=== PATIENT | male | born 1945 | race Caucasian/White ===

== ENCOUNTER 2023-08-11 14:05 | Inpatient (IN) | payer MEDICARE, BC ==
[~2023-08-11] VITALS: Ht 172.7 cm; Wt 92.1 kg
[2023-08-11 18:20] VITALS: BP 151/84; TEMP 98.5; O2SAT 97
[2023-08-11] MEDS ORDERED: HYDR-4077 PO (18:58)
[2023-08-11] MEDS ORDERED: AZIT250T13 PO (18:58)
[2023-08-11] MEDS ORDERED: AZIL40TA PO (18:58)
[2023-08-11] MEDS ORDERED: HYDR-894 PO (18:58)
[2023-08-11] MEDS ORDERED: PYRI60TA2 PO (18:58)
[2023-08-11] MEDS ORDERED: CARV12.52 PO (18:58)
[2023-08-11] MEDS ORDERED: ERGO400C PO (18:58)
[2023-08-11] MEDS ORDERED: SERT50TA PO (18:58)
[2023-08-11 19:30] VITALS: BP 154/83; TEMP 98.2; O2SAT 96
[2023-08-11] MEDS ORDERED: ASPI81TA31 PO (19:50)
[2023-08-11] MEDS ORDERED: CLOP75TA15 PO (19:58)
[2023-08-11] MEDS ORDERED: AZITHROMYCIN 250 MG TABLET PO SCH (21:00)
[2023-08-11] MEDS ORDERED: CARVEDILOL 12.5 MG TABLET PO SCH (21:00)
[2023-08-11] MEDS ORDERED: CLOPIDOGREL 75 MG TABLET PO SCH (21:00)
[2023-08-11] MEDS: CARVEDILOL 12.5 MG TABLET PO SCH (22:19)
[2023-08-11] MEDS: CLOPIDOGREL 75 MG TABLET PO SCH (22:19)
[2023-08-11 23:07] LABS: *BILIRUBIN,URIN NEGATIVE (NEGATIVE); *BLOOD, URINE NEGATIVE (NEGATIVE); *CLARITY,URINE CLEAR (CLEAR); *COLOR,URINE YELLOW (YELLOW); *KETONES,URINE NEGATIVE (NEGATIVE); *PROTEIN,URINE NEGATIVE (NEGATIVE); *UROBILINOGEN,URINE 0.2 E.U./dl (NORMAL); LEUKOCYTE ESTERASE ,URINE NEGATIVE (NEGATIVE); NITRITE, URINE NEGATIVE (NEGATIVE); PH,URINE 5.5 (5.0-8.0); UGLUCOSE NEGATIVE (NEGATIVE)
[2023-08-12] VITALS (13 sets, daily range): BP systolic 84–176; BP diastolic 53–98; TEMP 92.7–98.8; O2SAT 93–98
[2023-08-12] MEDS: hydrALAZINE HCL 50 MG TABLET PO PRN (03:14)
[2023-08-12] MEDS: hydrALAZINE HCL 50 MG TABLET PO ONE (06:17)
[2023-08-12] MEDS: ASPIRIN 81 MG TAB.CHEW PO SCH (08:17)
[2023-08-12] MEDS: SERTRALINE HCL 50 MG TABLET PO SCH (08:17)
[2023-08-12 08:35] LABS: BASOPHILS % (AUTO) 0.1 % (0.0-2.0); EOSINOPHILS # (AUTO) 0.1 K/uL (0.0-0.7); EOSINOPHILS % (AUTO) 1.2 % (0.0-7.0); HEMATOCRIT 39.6 % (36.7-47.1); HEMOGLOBIN 13.9 g/dL (12.5-16.3); LYMPHOCYTES # (AUTO) 1.2 K/uL (0.8-4.8); LYMPHOCYTES % (AUTO) 20.8 % (20.5-51.5); MEAN CORPUSCULAR HEMOGLOBIN 31.9 uug (23.8-33.4); MEAN CORPUSCULAR HGB CONC 35 g/dL (32.5-36.3); MONOCYTES # (AUTO) 0.6 K/uL (0.1-1.30); MONOCYTES % (AUTO) 11.1 % (0.0-11.0); NEUTROPHILS # (AUTO) 3.9 K/uL (1.8-8.9); NEUTROPHILS % (AUTO) 66.8 % (38.5-71.5); PLATELET COUNT (AUTO) 135 K/uL (152-348); RED BLOOD CELL COUNT(AUTO) 4.35 MIL/uL (4.06-5.63); RED CELL DISTRIBUTION WIDTH 12.6 % (12.1-16.2); WHITE BLOOD COUNT (AUTO) 5.8 K/uL (3.6-10.2)
[2023-08-12 08:44] LABS: THYROID STIMULATING HORMONE 2.146 mIU/mL (0.358-3.740)
[2023-08-12 08:53] LABS: IRON, SERUM 42 ug/dL (50-175)
[2023-08-12] MEDS ORDERED: Medication Not On Formulary EA (Azilsartan Medoxomil (Edarbi) 1 TAB) PO SCH (09:00)
[2023-08-12] MEDS: hydrALAZINE HCL 25 MG TABLET PO SCH (09:00)
[2023-08-12] MEDS ORDERED: I PO SCH (09:00)
[2023-08-12] MEDS ORDERED: hydrALAZINE HCL 50 MG TABLET PO SCH (09:00)
[2023-08-12] MEDS ORDERED: EDARBI 80 MG PO SCH ×2 (09:00→21:00)
[2023-08-12] MEDS ORDERED: PYRIDOSTIGMINE BROMIDE 60 MG TABLET PO SCH (09:00)
[2023-08-12 09:15] LABS: ALANINE AMINOTRANSFERASE 19 U/L (16-63); ALBUMIN 3.1 g/dL (3.4-5.0); ALKALINE PHOSPHATASE 54 U/L (50-136); ASPARTATE AMINOTRANSFERASE 6 U/L (15-37); BILIRUBIN,TOTAL 0.6 mg/dL (0.2-1.0); CARBON DIOXIDE 28 mmol/L (21-32); CHLORIDE 110 mmol/L (98-107); CHOLESTEROL 158 mg/dL (<200); CREATININE 1.1 mg/dL (0.6-1.3); GLUCOSE 98 mg/dL (74-106); HDL CHOLESTEROL 46 mg/dL (40-60); MAGNESIUM 2.2 mg/dL (1.8-2.4); NT-PRO BNP 299 pg/mL (0-125); PHOSPHOROUS 4.2 mg/dL (2.5-4.9); SODIUM SERUM 146 mmol/L (136-145); TOTAL PROTEIN, SERUM 6.4 g/dL (6.4-8.2); TRIGLYCERIDES 86 MG/DL (30-150); UREA NITROGEN, BLOOD 19 mg/dL (7-18)
[2023-08-12 09:52] LABS: CALCIUM 8.7 mg/dL (8.5-10.1)
[2023-08-12] MEDS: CHOLECALCIFEROL 400 UNITS TABLET PO SCH (10:06)
[2023-08-12] MEDS: PYRIDOSTIGMINE BROMIDE 60 MG TABLET PO SCH (10:07)
[2023-08-12] MEDS: AZITHROMYCIN 250 MG TABLET PO SCH (12:42)
[2023-08-12] MEDS: ENOXAPARIN SODIUM 40 MG/0.4 ML DISP.SYRIN SQ SCH (18:18)
[2023-08-12] MEDS: CARVEDILOL 12.5 MG TABLET PO SCH (21:16)
[2023-08-12] MEDS: EDARBI 80 MG PO SCH (21:17)
[2023-08-13] VITALS (7 sets, daily range): BP systolic 101–161; BP diastolic 53–85; TEMP 98.2–99.2; O2SAT 95–98
[2023-08-13] MEDS: CHOLECALCIFEROL 1,000 UNIT TABLET PO SCH (09:57)
[2023-08-13] MEDS: AZITHROMYCIN 250 MG TABLET PO SCH (12:19)
[2023-08-14] VITALS (8 sets, daily range): BP systolic 112–184; BP diastolic 59–90; TEMP 98.4–98.9; O2SAT 92–99
[2023-08-14] MEDS: hydrALAZINE HCL 25 MG TABLET PO PRN (04:37)
[2023-08-14] MEDS: hydrALAZINE HCL 50 MG TABLET PO SCH (13:00)
[2023-08-15 05:30] VITALS: BP 189/90; TEMP 98.3; O2SAT 96
[2023-08-15 08:00] VITALS: BP 150/85; TEMP 99.2; O2SAT 99
[2023-08-15 11:04] LABS: BASOPHILS # (AUTO) 0.1 K/UL (0.0-0.2); BASOPHILS % (AUTO) 1.4 % (0.0-2.0); EOSINOPHILS # (AUTO) 0.2 K/uL (0.0-0.7); EOSINOPHILS % (AUTO) 3.2 % (0.0-7.0); HEMATOCRIT 38.5 % (36.7-47.1); HEMOGLOBIN 13.3 g/dL (12.5-16.3); LYMPHOCYTES % (AUTO) 18.6 % (20.5-51.5); MEAN CORPUSCULAR HEMOGLOBIN 31.6 uug (23.8-33.4); MEAN CORPUSCULAR HGB CONC 35 g/dL (32.5-36.3); MONOCYTES # (AUTO) 0.4 K/uL (0.1-1.30); MONOCYTES % (AUTO) 8.3 % (0.0-11.0); NEUTROPHILS # (AUTO) 3.6 K/uL (1.8-8.9); NEUTROPHILS % (AUTO) 68.5 % (38.5-71.5); PLATELET COUNT (AUTO) 145 K/uL (152-348); RED BLOOD CELL COUNT(AUTO) 4.23 MIL/uL (4.06-5.63); RED CELL DISTRIBUTION WIDTH 12.6 % (12.1-16.2); WHITE BLOOD COUNT (AUTO) 5.3 K/uL (3.6-10.2)
[2023-08-15 11:24] LABS: DIFFERENTIAL COMMENT 1
[2023-08-15 11:40] LABS: ALBUMIN 3.2 g/dL (3.4-5.0); BILIRUBIN,TOTAL 0.6 mg/dL (0.2-1.0); CALCIUM 8.6 mg/dL (8.5-10.1); CREATININE 1.1 mg/dL (0.6-1.3); POTASSIUM 3.9 mmol/L (3.5-5.1); TOTAL PROTEIN, SERUM 6.6 g/dL (6.4-8.2)
[2023-08-15 13:05] VITALS: BP 127/80; TEMP 98.2; O2SAT 95
[2023-08-15 21:15] VITALS: BP 147/65; TEMP 98.3; O2SAT 92
[2023-08-16] VITALS (8 sets, daily range): BP systolic 117–204; BP diastolic 69–126; TEMP 97.2–98.7; O2SAT 96–98
[2023-08-16] MEDS: PANTOPRAZOLE SODIUM 40 MG TABLET.DR PO SCH (06:09)
[2023-08-16] MEDS: ASPIRIN EC 81 MG TABLET.DR PO SCH (08:32)
[2023-08-17] VITALS (10 sets, daily range): BP systolic 122–181; BP diastolic 76–90; TEMP 97.6–98.6; O2SAT 96–98
[2023-08-17] MEDS ORDERED: IV NORMAL SALINE 1000 ML BAG IV ONE (12:00)
[2023-08-17 12:50] LABS: BASOPHILS # (AUTO) 0.3 K/UL (0.0-0.2); BASOPHILS % (AUTO) 4.7 % (0.0-2.0); EOSINOPHILS # (AUTO) 0.1 K/uL (0.0-0.7); EOSINOPHILS % (AUTO) 1.5 % (0.0-7.0); HEMATOCRIT 38.3 % (36.7-47.1); HEMOGLOBIN 13.2 g/dL (12.5-16.3); LYMPHOCYTES # (AUTO) 1.1 K/uL (0.8-4.8); LYMPHOCYTES % (AUTO) 18.9 % (20.5-51.5); MEAN CORPUSCULAR HEMOGLOBIN 31.6 uug (23.8-33.4); MEAN CORPUSCULAR HGB CONC 34 g/dL (32.5-36.3); MEAN CORPUSCULAR VOLUME 91.9 fL (73.0-96.2); MONOCYTES # (AUTO) 0.3 K/uL (0.1-1.30); MONOCYTES % (AUTO) 5.2 % (0.0-11.0); NEUTROPHILS # (AUTO) 4.1 K/uL (1.8-8.9); NEUTROPHILS % (AUTO) 69.7 % (38.5-71.5); PLATELET COUNT (AUTO) 171 K/uL (152-348); RED BLOOD CELL COUNT(AUTO) 4.16 MIL/uL (4.06-5.63); RED CELL DISTRIBUTION WIDTH 12.7 % (12.1-16.2); WHITE BLOOD COUNT (AUTO) 5.9 K/uL (3.6-10.2)
[2023-08-17 12:53] LABS: DIFFERENTIAL COMMENT 1
[2023-08-17 13:04] LABS: ALBUMIN 3.3 g/dL (3.4-5.0); BILIRUBIN,TOTAL 0.5 mg/dL (0.2-1.0); CALCIUM 8.4 mg/dL (8.5-10.1); CREATININE 1.1 mg/dL (0.6-1.3); TOTAL PROTEIN, SERUM 6.6 g/dL (6.4-8.2)
[2023-08-17] MEDS: IV NS 1000 ML 1,000 ML IV ONE (14:05)
[2023-08-17 17:01] LABS: *BILIRUBIN,URIN NEGATIVE (NEGATIVE); *BLOOD, URINE NEGATIVE (NEGATIVE); *CLARITY,URINE CLEAR (CLEAR); *COLOR,URINE YELLOW (YELLOW); *KETONES,URINE NEGATIVE (NEGATIVE); *PROTEIN,URINE NEGATIVE (NEGATIVE); *UROBILINOGEN,URINE 0.2 E.U./dl (NORMAL); LEUKOCYTE ESTERASE ,URINE NEGATIVE (NEGATIVE); NITRITE, URINE NEGATIVE (NEGATIVE); UGLUCOSE NEGATIVE (NEGATIVE)
[2023-08-18] VITALS (9 sets, daily range): BP systolic 110–178; BP diastolic 71–97; TEMP 97.9–98.6; O2SAT 94–97
[2023-08-18] MEDS: LOSARTAN POTASSIUM 50 MG TABLET PO SCH (10:12)
[2023-08-19] VITALS (8 sets, daily range): BP systolic 124–174; BP diastolic 80–90; TEMP 98.6–98.7; O2SAT 92–97
[2023-08-19] MEDS: CYANOCOBALAMIN 1000 MCG/ML VIAL IM SCH (08:43)
[2023-08-19] MEDS ORDERED: CLOTRIMAZOLE 1% CREAM 30 GM TUBE TOP SCH (17:00)
[2023-08-19] MEDS ORDERED: hydrALAZINE HCL 50 MG TABLET PO PRN (19:45)
[2023-08-19] MEDS: AMLODIPINE 5 MG TABLET PO SCH (21:56)
[2023-08-19] MEDS: hydrALAZINE HCL 50 MG TABLET PO SCH (22:00)
[2023-08-20] VITALS (19 sets, daily range): BP systolic 107–190; BP diastolic 67–117; TEMP 98–98.7; O2SAT 91–99
[2023-08-20] MEDS: hydrALAZINE HCL 25 MG TABLET PO PRN (02:18)
[2023-08-20] MEDS ORDERED: CHOLECALCIFEROL 400 UNITS TABLET PO SCH (09:00)
[2023-08-20] MEDS: CHOLECALCIFEROL 1,000 UNIT TABLET PO SCH (09:57)
[2023-08-21] VITALS (12 sets, daily range): BP systolic 83–171; BP diastolic 72–110; TEMP 97.9–98.9; O2SAT 93–97
[2023-08-21 06:56] LABS: BASOPHILS % (AUTO) 0.1 % (0.0-2.0); EOSINOPHILS # (AUTO) 0.1 K/uL (0.0-0.7); EOSINOPHILS % (AUTO) 1.3 % (0.0-7.0); HEMATOCRIT 37.6 % (36.7-47.1); LYMPHOCYTES # (AUTO) 1.2 K/uL (0.8-4.8); LYMPHOCYTES % (AUTO) 22.2 % (20.5-51.5); MEAN CORPUSCULAR HEMOGLOBIN 31.4 uug (23.8-33.4); MEAN CORPUSCULAR HGB CONC 35 g/dL (32.5-36.3); MONOCYTES # (AUTO) 0.4 K/uL (0.1-1.30); MONOCYTES % (AUTO) 7.7 % (0.0-11.0); NEUTROPHILS # (AUTO) 3.6 K/uL (1.8-8.9); NEUTROPHILS % (AUTO) 68.7 % (38.5-71.5); PLATELET COUNT (AUTO) 163 K/uL (152-348); RED BLOOD CELL COUNT(AUTO) 4.13 MIL/uL (4.06-5.63); RED CELL DISTRIBUTION WIDTH 12.4 % (12.1-16.2); WHITE BLOOD COUNT (AUTO) 5.3 K/uL (3.6-10.2)
[2023-08-21 07:05] LABS: ALBUMIN 3.1 g/dL (3.4-5.0); BILIRUBIN,TOTAL 0.5 mg/dL (0.2-1.0); CALCIUM 8.5 mg/dL (8.5-10.1); CREATININE 1.1 mg/dL (0.6-1.3); DIFFERENTIAL COMMENT 1; MAGNESIUM 2.1 mg/dL (1.8-2.4); PHOSPHOROUS 4.1 mg/dL (2.5-4.9); POTASSIUM 4.2 mmol/L (3.5-5.1); TOTAL PROTEIN, SERUM 6.5 g/dL (6.4-8.2)
[2023-08-22] VITALS (8 sets, daily range): BP systolic 119–159; BP diastolic 79–95; TEMP 98.2–98.8; O2SAT 93–99
[2023-08-23 00:33] VITALS: O2SAT 93
[2023-08-23 13:56] VITALS: BP 141/78; TEMP 98.2; O2SAT 93
[2023-08-23 17:05] VITALS: BP 146/87; TEMP 98.3; O2SAT 98
[2023-08-23 19:50] VITALS: BP 133/78; TEMP 99; O2SAT 96
[2023-08-23 20:53] VITALS: O2SAT 96
[2023-08-24] VITALS (7 sets, daily range): BP systolic 109–158; BP diastolic 73–89; TEMP 98.4–98.7; O2SAT 95–98
== END 2023-08-24 15:30 | disposition home health service (06) | DRG 57 ==
PROVIDERS: ADMIT Physical Medicine & Rehabilitation Pain Medicine; ATTEND Physical Medicine & Rehabilitation Pain Medicine
PROC: 05HC33Z Insertion of Infusion Device into Left Basilic Vein, Percutaneous Approach (ICD-10-PCS; principal; 2023-08-17)
DX: I69.354 Hemiplegia and hemiparesis following cerebral infarction affecting left non-dominant side (principal); D68.59 Other primary thrombophilia; I10 Essential (primary) hypertension; M06.9 Rheumatoid arthritis, unspecified; N28.1 Cyst of kidney, acquired; E66.9 Obesity, unspecified; Z68.30 Body mass index [BMI] 30.0-30.9, adult; Z90.49 Acquired absence of other specified parts of digestive tract; E78.5 Hyperlipidemia, unspecified; E86.0 Dehydration; I69.391 Dysphagia following cerebral infarction; Z88.6 Allergy status to analgesic agent; M19.90 Unspecified osteoarthritis, unspecified site; G47.33 Obstructive sleep apnea (adult) (pediatric); I11.9 Hypertensive heart disease without heart failure; R50.9 Fever, unspecified; I95.1 Orthostatic hypotension; Z88.5 Allergy status to narcotic agent; Z88.8 Allergy status to other drugs, medicaments and biological substances
CPT/HCPCS: 36415; 71045; 82652; 83550; 83735; 84100; 84153; 84443; 84484; 84550; 85025; 85651; 86140; 87040; 87077; 93307; 97535-GO-CO; A4663; J1650; J3420; J7040; Q0144